=== PATIENT | male | born 1995 | race African-American/Black ===

== ENCOUNTER 2016-12-26 09:10 | Emergency (ER) | payer BC ==
[~2016-12-26] VITALS: Ht 177.8 cm; Wt 79.4 kg
[2016-12-26] MEDS ORDERED: FLEXERIL PO (10:44)
[2016-12-26 11:35] VITALS: BP 122/84
== END 2016-12-26 11:37 | disposition home or self-care (01) ==
LOC: ER 09:10
DX: M25.511 Pain in right shoulder (principal); F10.99 Alcohol use, unspecified with unspecified alcohol-induced disorder; Z77.22 Contact with and (suspected) exposure to environmental tobacco smoke (acute) (chronic); V89.2XXA Person injured in unspecified motor-vehicle accident, traffic, initial encounter; Y93.89 Activity, other specified; Y92.89 Other specified places as the place of occurrence of the external cause; Y99.8 Other external cause status